=== PATIENT | female | born 1995 | race Hispanic/Latino ===

== ENCOUNTER 2023-03-15 11:59 | Emergency (ER) | payer MEDICAID ==
[~2023-03-15] VITALS: Ht 177.8 cm; Wt 74.8 kg
[2023-03-15 12:02] VITALS: BP 97/51; PULSE 84; RESP 16
[2023-03-15] MEDS ORDERED: D-ME118S47 PO (13:09)
[2023-03-15] MEDS ORDERED: PRED20TA3 PO (13:09)
[2023-03-15] MEDS ORDERED: IBUP-2070 PO (13:09)
[2023-03-15] MEDS ORDERED: ONDANSETRON ODT 4MG TAB SL ONE (13:30)
[2023-03-15] MEDS ORDERED: IBUPROFEN 600 MG TABLET PO ONE (13:30)
[2023-03-15] MEDS ORDERED: PREDNISONE 20 MG TABLET PO ONE (13:30)
[2023-03-15] MEDS ORDERED: PENICILLIN G BENZATHINE LA 1.2 MILUNITS/2 ML SYG IM ONE (15:00)
== END 2023-03-15 15:30 | disposition home or self-care (01) ==
LOC: EDH 11:59
DX: J02.0 Streptococcal pharyngitis (principal); Z79.52 Long term (current) use of systemic steroids; Z20.822 Contact with and (suspected) exposure to COVID-19
CPT/HCPCS: 99283; 87635; 87880; 87804 ×2; 96372; J0561; C9803